=== PATIENT | male | born 2000 | race Caucasian/White ===

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

== ENCOUNTER → 2022-10-04 | Outpatient (CLI) | payer OTHER, SELFPAY ==
--- NOTE | 2022-10-04 09:00 | RAD_ITS ---
PROCEDURE: Upper GI with esophagram. DATE OF EXAMINATION: October 04, 2022. INDICATION: Male, 22 years old. Occasional vomiting. FLUOROSCOPY TIME (if supplied): (0:38) minutes/seconds 49.38 mGy. 18 images were obtained. TECHNIQUE: Radiographic and fluoroscopic images of the distal esophagus, and stomach were obtained following the oral ingestion of barium. COMPARISON: None. FINDINGS: The trouble locator test desk film of the abdomen demonstrates a normal bowel gas pattern. There are no abnormal calcifications or organomegaly demonstrated. The visualized osseous structures are normal. The esophagus is unremarkable. No evidence of gastroesophageal reflux. No evidence of obstruction. The patient ingested a 12 mm tablet of barium without any difficulty. The stomach is unremarkable. No evidence of ulceration. No evidence of obstruction. No mass lesions present. RAD/Upper GI w/BA Swallow IMPRESSION: Unremarkable esophagram and upper GI series. Electronically Signed: Daren Luke MD at 9:23 EDT ,
== END | disposition home or self-care (01) ==
PROVIDERS: PCP Family Medicine; Referring Provider Family Medicine; Visit Provider Family Medicine
DX: R11.10 Vomiting, unspecified (principal)
CPT/HCPCS: 74246

== ENCOUNTER → 2023-08-10 | Outpatient (CLI) | payer OTHER, SELFPAY ==
[2023-08-10 09:15] LABS: Bacteria 0 SEEN /hpf (None Seen)
--- OUTSIDE RECORDS SUMMARY | 2023-08-10 11:02 | XMS RPT_ITS | CCD ---
Author Name Unknown Address [facility] [address] [place] [address] Organization [facility] Care Team Providers Care Supervisor Steno Pool Name Role Phone Bernice SNELL, Bryanna Villafana Primary Care Provider BRIJESH FAULKNER Attending Unavailable BRIJESH FAULKNER Referring Unavailable BRYANNA QUEEN Primary Care Unavailld e BRIJESH FAULKNER Referring Unavailable BRYANNA QUEEN Primary Care UnavailBRIJESH Stinson Referring Unavailable BRYANNA QUEEN Primary Care UnavailBRIJESH Stinson Referring Unavailable BRYANNA QUEEN Primary Care Unavailabl e Medications Current Medications Medication Drug Class(es) Dates Sig (Normalized) Sig (Original) pantoprazole 40 mg delayed release oral tablet (2 sources) Proton Pump Inhibitor Start: 05-16-2023 End: 05-15-2024 take 1 tablet by mouth once daily pantoprazole (ProtoNix) 40 mg EC tablet Indications: Bilious vomiting with nausea Take 1 tablet (40 mg) by mouth once daily. Do not crush, chew, or split. 30 tablet 11 05/16/2023 05/15/2024 Active Completed/Discontinued Medications Medication Drug Class(es) Dates Sig (Normalized) Sig (Original) benzocaine 140 mg/ml / butamben 20 mg/ml / tetracaine 20 mg/ml mucosal spray (2 sources) Paola Local Anesthetic, Standardized Chemical Allergen Start: 05-16-2023 End: 05-16-2023 butamben-tetracain e-benzocaine (Cetacaine) spray calcium chloride 0.0014 meq/ml / potassium chloride 0.004 meq/ml / sodium chloride 0.103 meq/ml / sodium lactate 0.028 meq/ml injectable solution (2 sources) Start: 05-16-2023 End: 05-17-2023 lactated Ringer's infusion 5 ml midazolam 1 mg/ml injection (2 sources) Benzodiazepine Start: 05-16-2023 End: 05-16-2023 midazolam (Versed) injection 1 mg sucralfate 1000 mg oral tablet (11 sources) Aluminum Complex Start: 03-16-2023 End: 03-15-2024 take 1 tablet by mouth once daily at bedtime sucralfate (Carafate) 1 gram tablet Indications: Nausea and vomiting, unspecified vomiting type Take 1 tablet (1 g) by mouth once daily at bedtime. Take 1 hour before meals and at bedtime 30 tablet 1 03/16/2023 05/16/2023 Discontinued technetium Tc-99m sulfur colloid (Nycomed-SC) radio-isotope solution 1.1 millicurie (2 sources) Start: 03-23-2023 End: 03-23-2023 technetium Tc-99m sulfur colloid (Nycomed-SC) radio-isotope solution 1.1 millicurie Problems Problem Classification Problem Date Documented Da te Episodic/Chronic Esophageal disorders (2 sources) Gastro-esophagea l reflux disease without esophagitis; Translations: [Gastro-esophage al reflux disease without esophagitis] Onset: 02-27-2023 Chronic Nausea and vomiting (20 sources) Nausea and vomiting; Translations: [Nausea with vomiting, unspecified] Onset: 03-16-2023 03-16-2023 Episodic Results Test Name Value Interpretation Reference Range Facil ity Vital Signs Date Time Vital Sign Value Performing Clinician Facility 05-16-2023 08:45-0500 Diastolic blood pressure 77 mm[Hg] [address] 05-16-2023 08:45-0500 Heart rate 63 /min [address] 05-16-2023 08:45-0500 Respiratory rate 18 /min [address] 05-16-2023 08:45-0500 SaO2% (BldA) [Mass fraction] 96 % [address] 05-16-2023 08:45-0500 Systolic blood pressure 133 mm[Hg] [address] 05-16-2023 06:34-0500 Body height [address] 05-16-2023 06:34-0500 Body mass index (BMI) [Ratio] 41.61 kg/m2 [address] 05-16-2023 06:34-0500 Body temperature 97.2 [degF] [address] 05-16-2023 06:34-0500 Body weight 142.[address] Encounters Encounter Date Encounter Type Care Provider Facility Start: 05-16-2023 End: 05-17-2023 ambulatory BRIJESH FAULKNER [facility] Start: 05-16-2023 End: 05-16-2023 Subsequent hospital visit by physician Brijehs Faulkner DO Work Phone: [facility] [place] Procedures Date Procedure Procedure Detail Performing Clinician Start: 05-16-2023 DISCHARGE PATIENT BRIJESH FAULKNER Start: 05-16-2023 Esophagogastroduodenoscopy BRIJESH FAULKNER Start: 05-16-2023 SURGICAL PATHOLOGY EXAM BRIJESH FAULKNER Start: 05-16-2023 Esophagogastroduodenoscopy Brijesh Faulkner DO Work Phone: Start: 03-23-2023 NM GASTRIC EMPTYING SOLID BRIJESH FAULKNER Start: 03-23-2023 Gastric emptying imaging study Brijesh leigh DO Work Phone: Plan of Treatment Date Care Activity Detail Author Start: 2052 Zoster Vaccines (1 of 2) Zoster Vaccines (1 of 2) [facility] Start: 05-16-2023 End: 05-16-2023 Patient encounter procedure [facility] [place] Start: 01-27-2023 Influenza vaccination Influenza Vaccine (#1) [facility] Start: 06-29-2021 COVID-19 Vaccine (4 - Moderna series) COVID-19 Vaccine (4 - Moderna series) [facility] Start: 2020 Hepatitis C screening Hepatitis C Screening [facility] Start: 2013 HPV Vaccines (1 - Male 2-dose series) HPV Vaccines (1 - Male 2-dose series) [facility] Start: 2009 DTaP/Tdap/Td Vaccines (1 - Tdap) DTaP/Tdap/Td Vaccines (1 - Tdap) [facility] Start: 2005 Well Child Visit (WCV) - Annual Well Child Visit (WCV) - Annual [facility] Start: 2003 MMR Vaccines (1 of 1 - Standard series) MMR Vaccines (1 of 1 - Standard series) [facility] Start: 2003 Varicella vaccination Varicella Vaccines (1 of 2 - 2-dose childhood series) [facility] Start: 2002 Hearing Screening (#1) Hearing Screening (#1) [facility] Start: 2002 Hepatitis B Vaccines (1 of 3 - 3-dose series) Hepatitis B Vaccines (1 of 3 - 3-dose series) [facility] Start: 2002 HIV screening HIV Screening [facility] Start: 2002 Lipid panel Lipid Panel [facility] Glucose [Mass/volume ] in Serum or Plasma POCT Glucose Point of Care Testing - Docked Device Routine As needed (Lab) until discontinued starting 05/16/2023 [facility] Service Area Work Phone: Payers Date Payer Category Payer Private Health Insurance [id number] 2022 Private Health Insurance [facility] [id number] 2022-Present P Tommy [address]ma [id number] [place] [address] [id number] 2002 Unknown [id number] 2002 Unknown [id number] 2002 Unknown [id number] 2002 Unknown [id number] 2002 Unknown [id number] 2002 Unknown [id number] 2002 Unknown [id number] Social History Date Type Detail Facility Start[facility]16[facility] Work Phone: Start: 03-16-2023 Tobacco use and exposure Smokeless tobacco non-user [facility] Work Phone: Start: 03-16-2023 End: 05-16-2023 Alcohol intake Current drinker of alcohol (finding) [facility] Work Phone: Start: 03-16-2023 End: 05-16-2023 Alcohol intake [facility] Work Phone: Start: 03-16-2023 End: 05-16-2023 Tobacco use panel [facility] Work Phone: Start: 2002 Sex Assigned At Not on file [facility] Work Phone: Start: 03-13-2023 End: 05-16-2023 Exposure to SARS-CoV-2 (event) Not sure [facility] History and physical note 05-16-2023 Brijesh Faulkner, DO - 05/16/2023 7:00 AM EST Note Date & Type Note Facility 05-16-2023 History and physical note History Of Present Illness Patrick Carlson is a 22 y.o. male presenting with dyspepsia. Past Medical History Past Medical History: Diagnosis Date GERD (gastroesophageal reflux disease) Surgical History History reviewed. No pertinent surgical history. Social History He reports that he has never smoked. He has never used smokeless tobacco. He reports current alcohol use of about 2.0 standard drinks of alcohol per week. He reports that he does not use drugs. Family History Family History Problem Relation Name Age of Onset Thyroid cancer Mother Colon cancer Father Asthma Sister Anxiety disorder Sister Heart disease Paternal Grandmother Allergies Patient has no known allergies. Review of Systems Physical Exam Last Recorded Vitals Blood pressure 134/75, pulse 70, temperature 36.2 C (97.2 F), temperature source Temporal, resp. rate 18, height 1.85 m (6' 0.84 ), weight 142 kg (313 lb 15 oz), SpO2 98 %. Relevant Results Assessment/Plan Active Problems: There are no active Hospital Problems. Problem List Items Addressed This Visit Nausea & vomiting Relevant Orders EGD I spent minutes in the professional and overall care of this patient. Brijesh Faulkner DO [facility] Work Phone: History and physical note 05-16-2023 Brijesh Faulkner DO - 05/16/2023 7:00 AM EST Note Date & Type Note Facility 05-16-2023 History and physical note History Of Present Illness Patrick Carlson is a 22 y.o. male presenting with dyspepsia. Past Medical History Past Medical History: Diagnosis Date GERD (gastroesophageal reflux disease) Surgical History History reviewed. No pertinent surgical history. Social History He reports that he has never smoked. He has never used smokeless tobacco. He reports current alcohol use of about 2.0 standard drinks of alcohol per week. He reports that he does not use drugs. Family History Family History Problem Relation Name Age of Onset Thyroid cancer Mother Colon cancer Father Asthma Sister Anxiety disorder Sister Heart disease Paternal Grandmother Allergies Patient has no known allergies. Review of Systems Physical Exam Last Recorded Vitals Blood pressure 134/75, pulse 70, temperature 36.2 C (97.2 F), temperature source Temporal, resp. rate 18, height 1.85 m (6' 0.84 ), weight 142 kg (313 lb 15 oz), SpO2 98 %. Relevant Results Assessment/Plan Active Problems: There are no active Hospital Problems. Problem List Items Addressed This Visit Nausea & vomiting Relevant Orders EGD I spent minutes in the professional and overall care of this patient. Brijesh Faulkner DO documented in this encounter [facility] Work Phone: Hospital Discharge instructions 05-16-2023 Discharge Instructions Note Date & Type Note Facility 05-16-2023 Hospital Discharg e instructions Sandy Ness RN - 05/16/2023 6:30 AM EST Patient Instructions after an endoscopy or colonoscopy The anesthetics, sedatives or narcotics which were given to you today will be acting in your body for the next 24 hours, so you might feel a little sleepy or groggy. This feeling should slowly wear off. Carefully read and follow the instructions. You received sedation today: - Do not drive or operate any machinery or power tools of any kind. - No alcoholic beverages today, not even beer or wine. - Do not make any important decisions or sign any legal documents. - No over the counter medications that contain alcohol or that may cause drowsiness. - Do not make any important decisions or sign any legal documents. While it is common to experience mild to moderate abdominal distention, gas, or belching after your procedure, if any of these symptoms occur following discharge from the GI Lab or within one week of having your procedure, call the [facility] to be advised whether a visit to your nearest Urgent Care or Emergency Department is indicated. Take this paper with you if you go. - If you develop an allergic reaction to the medications that were given during your procedure such as difficulty breathing, rash, hives, severe nausea, vomiting or lightheadedness.- If you experience chest pain, shortness of breath, severe abdominal pain, fevers and chills. -If you develop signs and symptoms of bleeding such as blood in your spit, if your stools turn black, tarry, or bloody - If you have not urinated within 8 hours following your procedure.- If your IV site becomes painful, red, inflamed, or looks infected. documented in this encounter [facility] Work Phone: Evaluation note Note Date & Type Note Facility documented in this encounter [facility] Work Phone: Evaluation note Note Date & Type Note Facility documented in this encounter [facility] Work Phone: Evaluation note Note Date & Type Note Facility documented in this encounter [facility] Work Phone: Evaluation note Note Date & Type Note Facility documented in this encounter [facility] Work Phone: Summary Purpose Family History No Family History Records FoundNo Family History Records Found Advance Directives No Advanced Directives Records FoundNo Advanced Directives Records Found Reason for Referral Specialty Diagnoses / Procedures Referred By Contac t Referred To Contact Radiology Diagnoses Nausea and vomiting, unspecified vomiting type Procedures NM gastric emptying solid Brijesh Faulkner DO [address] [facility], [place] [address] Referral ID Status Reason Start Date Expiration Date Visits Requested Visits Authorized [id number] Pending Review Perform Procedure 3 03/15/2024 3 3 Specialty Diagnoses / Procedures Referred By Contact Referred To Contact Gastroenterology Diagnoses Nausea and vomiting, unspecified vomiting type Procedures EGD MN ESOPHAGOGASTRODUODENOSCOPY TRANSORAL DIAGNOSTIC MN EGD TRANSORAL BIOPSY SINGLE/MULTIPLE Brijesh Faulkner DO [address] [facility], [place] [address] Referral ID Status Reason Start Date Expiration Date V isits Requested Visits Authorized [id number] Authorized 03/16/2023 03/15/2024 1 1 Additional Source Comments (unrecognized sect ion and content) No Status Records FoundNo Status Records Found INFORMATION SOURCE (unrecogn ized section and content) DATE CREATED AUTHOR AUTHOR'S ORGANIZ ATION 05/27/2023 [facility] Reason for Visit (unrecogniz ed section and content) Referral ID Status Reason Start Date Expiration Date Visits Requested Visits Authorized [id number] Pending Review Perform Procedure 3 03/15/2024 3 3 Specialty Diagnoses / Procedures Referred By Contact Referred To Contact Gastroenterology Diagnoses Nausea and vomiting, unspecified vomiting type Procedures EGD MN ESOPHAGOGASTRODUODENOSCOPY TRANSORAL DIAGNOSTIC MN EGD TRANSORAL BIOPSY SINGLE/MULTIPLE Brijesh Faulkner DO [address] [facility], [place] [address] Referral ID Status Reason Start Date Expiration Date V isits Requested Visits Authorized [id number] Authorized 03/16/2023 03/15/2024 1 1 Care Teams (unrecognized sec tion and content) Supervisor Steno Pool Relationship Specialty Start Date End Date Bryanna Queen MD [address] [place] [address] PCP - General Family Medicine 03/23/23 Supervisor Steno Pool Relationship Specialty Start Date End Date Bryanna Queen MD PCP - General Family Medicine 03/23/23 Supervisor Steno Pool Relationship Specialty Start Date End Date Bryanna Queen MD PCP - General Family Medicine 03/23/23 Supervisor Steno Pool Relationship Specialty Start Date End Date Bryanna Queen MD PCP - General Family Medicine 03/23/23 Supervisor Steno Pool Relationship Specialty Start Date End Date Bryanna Queen MD PCP - General Family Medicine 03/23/23 FOR RECORDS PERTAINING TO PATIENTS WHO ARE OR HAVE BEEN ENROLLED IN A CHEMICAL DEPENDENCY/SUBSTANCEABUSE PROGRAM, SOME INFORMATION MAY BE OMITTED. This clinical summary was aggregated from multiple sources. Caution should be exercised in using it in the provision of clinical care. This summary normalizes information from multiple sources, and as a consequence, information in this document may materially change the coding, format and clinical context of patient data. In addition, data may be omitted in some cases. CLINICAL DECISIONS SHOULD BE BASED ON THE PRIMARY CLINICAL RECORDS. [employer] provides no warranty or guarantee of the accuracy or completeness of information in this document.
[2023-08-10 12:23] LABS: Color, Urine Yellow (Yellow); Glucose, Dipstick Normal (Normal); Ketone-Dipstick 5 mg/dl (Negative); Leukocyte Esterase-Dipstick 25 /ul (Negative); Nitrite-Dipstick Positive (Negative); Occult Blood-Urine 150 /ul (Negative); Protein-Dipstick 100 mg/dl (Negative); Specific Gravity, Urine 1.025 (1.002-1.030); Urine Clarity Clear (Clear); Urine Urobilinogen 4 mg/dl (Normal)
[2023-08-10 12:30] LABS: Red Blood Cells-Urine 10-25 SEEN /hpf (0-5); Urine Bilirubin Dipstick 1 mg/dL (Negative); White Blood Cells 5-10 SEEN /hpf (0-5)
[2023-08-10 12:31] LABS: Calcium Oxalate Crystals Ur 3+ /hpf (<or=2+); Mucous, Urine 3+ /hpf (<or=2+); Squamous Epithelial Cells - UA 10-25 SEEN /hpf (0-5)
[2023-08-10 14:41] LABS: Anion Gap 6 (5-15); BUN 11 mg/dL (7-18); Calcium,Total 9.1 mg/dL (8.5-10.1); Chloride 104 mmol/L (98-107); Creatinine, Serum 0.79 mg/dL (0.70-1.30); EST Glomerular Filtration Rate 132 mL/min (>60); Est Glom Filt Rate - Afr Amer 160 mL/min (>60); Glucose 93 mg/dL (74-106); Potassium 3.9 mmol/L (3.5-5.1); Protein, Urine (Random) 246.2 mg/dL (<11.9); Protein:Creat Ratio 658 mg/g CRE (0-200); Sodium Level 136 mmol/L (136-145)
== END | disposition home or self-care (01) ==
LOC: BFHLAB 09:11
PROVIDERS: PCP Family Medicine; Visit Provider Family Medicine
DX: R80.9 Proteinuria, unspecified (principal)
CPT/HCPCS: 36415; 80048; 81001; 82570; 84156

== ENCOUNTER → 2023-10-10 | Outpatient (CLI) | payer OTHER, SELFPAY ==
[2023-10-10 18:12] LABS: Bacteria 0 SEEN /hpf (None Seen); Mucous, Urine 0 SEEN /hpf (<or=2+); Red Blood Cells-Urine 0 SEEN /hpf (0-5); Squamous Epithelial Cells - UA 0 SEEN /hpf (0-5); White Blood Cells 0 SEEN /hpf (0-5)
[2023-10-10 18:35] LABS: Color, Urine Yellow (Yellow); Glucose, Dipstick Normal (Normal); Ketone-Dipstick Negative (Negative); Leukocyte Esterase-Dipstick Negative /ul (Negative); Nitrite-Dipstick Negative (Negative); Occult Blood-Urine 25 /ul (Negative); Protein-Dipstick 30 mg/dl (Negative); Specific Gravity, Urine 1.015 (1.002-1.030); Urine Bilirubin Dipstick Negative (Negative); Urine Clarity Clear (Clear); Urine Urobilinogen Normal (Normal)
== END | disposition home or self-care (01) ==
PROVIDERS: PCP Family Medicine; Referring Provider Nurse Practitioner; Visit Provider Nurse Practitioner
DX: R31.0 Gross hematuria (principal)
CPT/HCPCS: 81001

== ENCOUNTER → 2023-10-21 | Outpatient (CLI) | payer OTHER, SELFPAY ==
--- NOTE | 2023-10-21 09:56 | CT_ITS ---
EXAM: CT ABDOMEN AND PELVIS WITHOUT INTRAVENOUS CONTRAST CLINICAL INDICATION: GROSS HEMATURIA TECHNIQUE: Helically acquired images were obtained of the abdomen and pelvis without intravenous contrast. This CT exam was performed using one or more of the following dose reduction techniques: automated exposure control, adjustment of the mA and/or kV according to patient size, and/or use of iterative reconstruction technique. COMPARISON: No relevant prior studies available. FINDINGS: LOWER THORAX: Normal. Lung bases are clear. No cardiomegaly. No pericardial effusion. ABDOMEN: LIVER: Normal. Homogeneous. GALLBLADDER AND BILE DUCTS: Normal-appearing gallbladder. PANCREAS: Normal. No focal cystic mass. SPLEEN: Normal. Normal size without focal cystic or solid mass. ADRENALS: Normal. No nodules. KIDNEYS AND URETERS: Normal. No evidence of urinary tract stone disease. STOMACH AND BOWEL: Normal. No bowel distention. No focal inflammatory change. PELVIS: APPENDIX: Appendix is visualized and normal in appearance. BLADDER: Urinary bladder is contracted. REPRODUCTIVE: Unremarkable as visualized. No mass. ABDOMEN and PELVIS: INTRAPERITONEAL SPACE: Normal. No ascites or other fluid collection. No free air. BONES/JOINTS: No suspicious lytic or blastic abnormality. SOFT TISSUES: Normal. No discrete abdominal or pelvic wall hernia. VASCULATURE: Normal. Abdominal aorta is non-dilated. LYMPH NODES: Normal. No enlarged lymph nodes. CT/Abdomen/Pelvis without Cont IMPRESSION: 1. No acute abdominal or pelvic abnormality. 2. No evidence of urinary tract stone disease. Electronically Signed: Yeyo Pendleton MD at 15:49 EDT ,
== END | disposition home or self-care (01) ==
LOC: CT 09:55
PROVIDERS: PCP Family Medicine; Referring Provider Urology; Visit Provider Urology
DX: R31.0 Gross hematuria (principal)
CPT/HCPCS: 74176